=== PATIENT | male | born 1950 | race Caucasian/White ===

== ENCOUNTER → 2017-08-22 | Outpatient (CLI) | payer OTHER ==
[~2017-08-22] MED LIST: ACETAZOLAMIDE125 MG; ALBUTEROL INH IH; ALBUTEROL2.5 MG/0.1 INH; LISINOPRIL10 MG PO; LORTAB 7.5/5001 TA3 PO; METROPOLOL OR; PERCOCET 7.5-51 EACH PO; PROAIR HFA8.5 GM INH; ROBAXIN 750 MG750 M1 PO; ZOCOR 20 MG TAB20 M1 OR
== END ==
LOC: RAD 10:37
DX: M85.89 Other specified disorders of bone density and structure, multiple sites (principal); Z85.46 Personal history of malignant neoplasm of prostate

== ENCOUNTER → 2019-03-27 | Outpatient (CLI) | payer OTHER | END | disposition home or self-care (01) | LOC: SJCVCIMAG 07:30 | DX: I65.23 Occlusion and stenosis of bilateral carotid arteries (principal); I10 Essential (primary) hypertension; E78.5 Hyperlipidemia, unspecified; C61 Malignant neoplasm of prostate; Z82.49 Family history of ischemic heart disease and other diseases of the circulatory system; Z79.82 Long term (current) use of aspirin ==

== ENCOUNTER → 2019-11-24 | Outpatient (CLI) | payer OTHER ==
[~2019-11-24] VITALS: Ht 177.8 cm; Wt 68.0 kg
[~2019-11-24] MED LIST changes: +DICLOFENAC SOD50 MG PO; +EYE DROPS15 M1 OPHTHALMIC; +IRON325 M1 PO; -LISINOPRIL10 MG PO; +PRESERVISION A1 EAC2 PO; +ROSUVASTATIN CA40 MG PO; +ZESTRIL20 MG PO; -ZOCOR 20 MG TAB20 M1 OR
--- NOTE | ~2019-11-24 | HPC ---
[facility] [address] [place] [address] PAIN MANAGEMENT CONSULTATION Name: EDGAR VILLAREAL [facility] #[facility] [id number] Admission: 11/24/19 Attend Phys: Noble Trejo DO Discharge: Date of : 50 Report #: [id number] CC: Marilyn Rogers ANP Noble Cantu DATE OF SERVICE: 11/24/2019 CHIEF COMPLAINT: Neck pain. HISTORY OF PRESENT ILLNESS: As you know, the patient is a pleasant 69-year-old male with longstanding history of chronic upper neck pain. The patient states the pain began to intensify on 03/2015. As you are aware, the patient has had 2 different surgeries in the cervical spine, one in 2000 where he underwent a cervical diskectomy and in 2007 he underwent an anterior fusion. He states that he has trialled conservative treatment with physical therapy, but this did not provide much in the way of improvement. He sought evaluation through [facility]surgery of [facility] to discuss treatment options for his upper neck symptoms. It was determined the patient was likely suffering from facet arthropathy pain and referred for discussion of treatment options for cervical facet degeneration. The patient was advised when he made today's appointment that we do not offer a medial branch nerve blocks or radiofrequency lesioning of the cervical region. He chose to go ahead and continue to follow up in this appointment. The patient indicates the pain today is constant. He describes the pain as aching, place his current pain score 2/10, daily average of 6/10, worst pain has been is 8/10. The patient states his pain is exacerbated with cervical extension and rotation, improves with forward flexion of the cervical region. He has been referred to our service to discuss treatment options for chronic upper neck pain due to facet arthropathy above the level of his fusion at C4-C5 and C5-C6. PAST MEDICAL HISTORY: 1. Asthma. 2. Hypertension. 3. Dyslipidemia. 4. Iron deficiency anemia. 5. Prostate cancer. PAST SURGICAL HISTORY: 1. Radical prostatectomy. 2. L4-L5 DLL [address] Hitchcock. 3. DLL L4-L5 [address] Hitchcock. 4. ACDF of the cervical spine at C4-C5 and C5-C6 in 2007. 5. Cervical diskectomy 2000. SOCIAL HISTORY: The patient states he is a nonsmoker. Denies IV or illicit drug use. Admits to 2 alcohol beverages per day. 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 He is unaccompanied at today's visit. REVIEW OF SYSTEMS: Positive for wearing corrective eyewear, hearing loss, asthma, nocturia, sexual difficulty, neck pain. All other review of systems negative per 12-point review of systems other than those listed in history of present illness. Pain impact score 36/70 indicating moderate interference of daily activities secondary to pain. ALLERGIES: PENICILLINS. CURRENT MEDICATIONS: Rosuvastatin 40 mg once a day, lisinopril 20 mg per day, albuterol 2 puffs q.4 hours p.r.n., ferrous sulfate 325 mg per day. IMAGING: No imaging available. PQRS: The patient has known arthritic changes of the cervical spine, lumbar spine, bilateral hips. No rheumatoid arthritis. He is placing current pain score at around 6/10. He is not a fall risk, has not had a fall in last 3 months. He is not on blood thinners, but is treated for hypertension. He is not on chronic opioids, has a low opioid addiction potential based on our assessment tool. Pain impact is 36/70, moderate interference of daily activities secondary to pain. PHYSICAL EXAMINATION: VITAL SIGNS: Blood pressure 142/89, pulse 75, respiratory rate 18 and unlabored. The patient is 98% on room air. Height 5 feet 10 inches tall, weight 150 pounds, BMI calculated 21.5. GENERAL: Well-developed, well-nourished, well-hydrated 69-year-old male appearing his stated age, placing current pain score up to 6/10. HEENT: Normocephalic, atraumatic. Pupils equal, round and reactive to light. Extraocular muscles are intact. NEUROLOGIC: Speech is fluent. The patient is deemed an excellent historian. LUNGS: Clear, no wheeze, rhonchi or rales. CARDIOVASCULAR: Regular. No appreciable gallop, no rub. ABDOMEN: Soft, nontender, nondistended, normal active bowel sounds. EXTREMITIES: Show no clubbing, no cyanosis, no noted edema. MUSCULOSKELETAL: Palpatory tenderness is noted over the paraspinal musculature of cervical spine. No spinous process tenderness. Upper extremity strength is equal and symmetrical 5/5. Muscle bulk and tone equal and symmetrical when comparing left upper extremity to right upper extremity. Deep tendon reflexes 2+/4 biceps, brachioradialis and triceps. Spurling's test is negative. Cervical provocation testing including extension and rotation exacerbate upper neck pain. Forward flexion is mildly restricted, but improvement in symptoms. ASSESSMENT: 1. Chronic neck pain. 2. Cervical spondylosis without radiculopathy. 3. Facet arthropathy of the cervical spine. 4. Chronic intractable pain. PLAN: 1. Based on today's physical exam and history the patient has provided, the description the patient uses in regards to pain, it would appear the symptoms he is relying and perceiving are due to the facet arthropathy of the cervical region. The patient and I discussed the treatment options we have available here at this clinic to address his cervical facet arthropathy, the following was discussed with the patient today. We discussed physical therapy, stretching exercises and traction techniques as a treatment option. This will help alleviate some of the pressure in the upper cervical spine and potentially improve overall pain. We discussed medication management utilizing nonsteroidal anti-inflammatory therapy along with a possible addition of a low dose opioid such as tramadol or hydrocodone if necessary. We discussed intra-articular facet injections as a treatment option, but did advise the patient those would be transient in their improvement and symptoms would likely return. We discussed medial branch nerve blocks and radiofrequency lesioning though we do not offer those type of procedures at this clinic. After reviewing the risks and benefits of all the proposed treatment options, the patient chose to consider his options further before moving forward with interventional treatments. 2. We made no changes in the patient's medication management at this time. The patient and I had a very long and fruitful discussion about the treatment options and the use of medications and he is resistant to make any adjustments at this time, though ultimately he may require to at least undergo treatment with nonsteroidal anti-inflammatories. 3. We have plans to see the patient back in followup visit on an as needed basis. He is going to discuss his case further with Neurosurgery and his primary care physician to determine whether or not he wishes to undergo radiofrequency lesioning of the medial branch nerves of the cervical spine. We did discuss the fact that this is a temporizing treatment option and would have to be repeated potentially as much as every 6 months to 9 months depending on efficacy. The patient at this time is considering a more prolonged treatment approach, but will discuss further with his treating team. We would be more than willing to see the patient back in followup visit for intra-articular facet injections and to address other therapeutic options if he wishes to do so. 4. We wish to thank nurse practitioner, Lakeisha Rogers for the opportunity to see the patient in consultation. We will keep you apprised whether or not he does return to discuss other treatment options with our clinic. Again, we wish to thank you for the opportunity to see the patient in consultation. By: [phone] Noble Trejo DO /stephanie
[2019-11-24 08:31] VITALS: BP 142/89
--- NOTE | 2019-11-24 08:51 | NUR ---
Pain Clinic Assessment: 1. History of Osteoarthritis: DENIES History of Rheumatoid Arthritis: DENIES 2. Height: 5 ft. 10 in. 177.8 cm. Weight: 150.0 lb. oz. 68.040 kg. Patient's BMI: 21.5 3. Vital Signs: BP: 142/89 Pulse: 75 Resp: 18 Temp: 02 Sat: 98 ECG Mon: 4. Pain Intensity: 6 5. Fall Risk: Dizziness: N Needs help standing or walking: N Fallen in the last 3 months: N Fall risk comments: 6. Patient on Blood Thinner: None 7. History of Hypertension: Y 8. Opioid Therapy greater than 6 weeks: N Opiate Contract Signed: 9. Risk Assessment Tool Provided: 10. Functional Assessment Tool: 11. Recreational Drug Use: Never Drug Type: Tobacco Use: Never Smoker Tobacco Type: Amount or Packs/day: How Many Years: Alcohol Use: Yes Frequency: Daily Quant: 2 WINE
== END ==
LOC: PAIN 06:41
PROVIDERS: ATTEND Anesthesiology Pain Medicine
DX: M47.22 Other spondylosis with radiculopathy, cervical region (principal); G89.29 Other chronic pain; Z88.0 Allergy status to penicillin; Z79.899 Other long term (current) drug therapy

== ENCOUNTER → 2019-12-22 | Outpatient (CLI) | payer OTHER ==
[~2019-12-22] VITALS: Ht 177.8 cm; Wt 70.3 kg
[~2019-12-22] MED LIST changes: +TRAMADOL 50 MG50 MG PO
[2019-12-22 08:04] VITALS: BP 124/72
--- NOTE | 2019-12-22 08:22 | NUR ---
Pain Clinic Assessment: 1. History of Osteoarthritis: DENIES History of Rheumatoid Arthritis: DENIES 2. Height: 5 ft. 10 in. 177.8 cm. Weight: 155.0 lb. oz. 70.308 kg. Patient's BMI: 22.2 3. Vital Signs: BP: 124/72 Pulse: 65 Resp: 16 Temp: 02 Sat: 99 ECG Mon: 4. Pain Intensity: 2 5. Fall Risk: Dizziness: Needs help standing or walking: Fallen in the last 3 months: Fall risk comments: 6. Patient on Blood Thinner: None 7. History of Hypertension: Y 8. Opioid Therapy greater than 6 weeks: N Opiate Contract Signed: 9. Risk Assessment Tool Provided: 0-LOW 10. Functional Assessment Tool: 11. Recreational Drug Use: Never Drug Type: Tobacco Use: Never Smoker Tobacco Type: Amount or Packs/day: How Many Years: Alcohol Use: Yes Frequency: Daily Quant: 2 GLASSES WINE
--- NOTE | 2019-12-22 10:45 | HPC ---
[facility] [place] [address] PAIN MANAGEMENT CONSULTATION Name: EDGAR VILLAREAL Room #: [facility] [id number] Admission: 12/22/19 Attend Phys: Noble Trejo DO Discharge: Date of : 50 Report #: [id number] CC: Marilyn Cantu MD DATE OF SERVICE: 12/22/2019 REFERRING PHYSICIAN: Marilyn Rogers APRN CHIEF COMPLAINT: Neck pain. HISTORY OF PRESENT ILLNESS: As you know, the patient is a very pleasant 69-year-old male with longstanding history of chronic upper neck pain. He states pain began 03/2015. He is unaware of any injury or trauma that may have led to symptom development. He has undergone surgery of the cervical spine in 2000 and 2007 with improvement in symptoms. Unfortunately, his symptoms returned. He was diagnosed with progressively worsening cervical spondylosis without radiculopathy and referred to our clinic to discuss options for treatment. We saw the patient in consultation per the request of nurse practitioner, Lakeisha Rogers on 11/24/2019 and he was started on diclofenac sodium for pain control. He is taking 2 tabs a day with resolution of symptoms down to a level of 2/10. He is extremely pleased with response to medication. He has exacerbation of symptoms now that only reach about 4-5 level instead of an 8-9 level. He is very pleased with response to medication, returning today in followup visit to discuss options for treatment to address this residual intermittent pain. The patient is very pleased with response to treatment. He has discussed with his brother who is a retired orthopedic surgeon whether or not radiofrequency lesioning would be of interest and he has been advised that this would not be a treatment that they would recommend and he has chosen to utilize medication management. He returns today to discuss adjustments in medications to address residual pain. ALLERGIES: PENICILLIN. CURRENT MEDICATIONS: Rosuvastatin 40 mg once a day, lisinopril 20 mg once a day, albuterol 2 puffs q. 4 hours p.r.n., ferrous sulfate 325 mg per day, diclofenac 50 mg b.i.d. SOCIAL HISTORY: The patient is a nonsmoker. Denies IV or illicit drug use. Admits to approximately 2 alcohol beverages per day. 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 Unaccompanied today. IMAGING: No new imaging available. PQRS: The patient has arthritic changes of the cervical spine, lumbar spine, and bilateral hips. No rheumatoid arthritis. The patient is placing current pain score at 2/10. He is not a fall risk, has not had a fall in last 3 months. He is not on blood thinners, but he is treated for hypertension. He is not on chronic opioids, has a low opiate addiction potential. Pain impact of , mild interference of daily activities secondary to pain. PHYSICAL EXAMINATION: VITAL SIGNS: Blood pressure 124/72, pulse 65, respiratory rate 16 and unlabored. The patient is 99% on room air. Height 5 feet 10 inches tall, weight 155 pounds, BMI calculated 22.2. GENERAL: Well-developed, well-nourished, well-hydrated 69-year-old male appearing stated age, pain is rated today 2/10. HEENT: Normocephalic, atraumatic. Pupils equal, round and reactive. Speech remains fluent. EXTREMITIES: Show no clubbing, no cyanosis. No appreciable edema. MUSCULOSKELETAL: There is tenderness to palpation over the paraspinal musculature of cervical spine, but this is significantly improved from our last visit. No spinous process tenderness. Upper extremity strength equal and symmetrical. Muscle bulk and tone equal and symmetrical in upper extremities. Spurling's test is negative. Cervical provocation testing is met with increasing pain with rotation and lateral flexion. Pain is also noted for a cervical extension. Forward flexion of the cervical spine improves pain. ASSESSMENT: 1. Chronic neck pain. 2. Cervical spondylosis without radiculopathy. 3. Facet arthropathy of cervical spine. 4. Chronic intractable pain. PLAN: 1. The patient returns today in followup visit indicating good efficacy with the diclofenac provided at our last visit. He is taking it b.i.d. dosing, which has reduced his pain from its high of 7/10-8/10 down to a 2/10. He does have exacerbation of symptoms with activity such as looking up for any length of time or mowing the lawn. He returns today for further adjustments in medication management to address this residual spike of symptoms on an infrequent basis. He is denying side effects of dyspepsia, worsening of blood pressure or lower extremity edema with use of the diclofenac. 2. We recommend continuing diclofenac for baseline pain control. The fact that he is seeing such a significant improvement in symptoms is encouraging. We recommend he continue the diclofenac at b.i.d. dosing. He could escalate to t.i.d. if his symptoms do worsen over an extended period of time, but at present, he seems to be doing very well. We will recommend he continues this medication. He has refills and does not need a renewal of his medication today. 3. In regard to the patient's breakthrough pain, I would recommend the use of a p.r.n. tramadol. This will provide the patient with improvement in his analgesic benefit with minimal side effects. We have given the patient tramadol 1-2 tabs p.o. b.i.d. p.r.n. pain. I have given the patient #60 tablets with refills as necessary. The patient reports that he would have to use this likely once or twice a week at present, but we are concerned that with increasing activities over the next couple of weeks with the holidays that he may have exacerbation of symptoms and thus provided a b.i.d. dosing. He was given the medication in prescription form today. He will fill this medication at his earliest convenience. He will watch for side effects of sleepiness, disorientation, confusion, mental slowing and constipation. We recommend this to be used as p.r.n. 4. We plan to see the patient back in follow-up visit in approximately 2 months. At that time, review the efficacy of medications provided today and discuss interventional treatment options if necessary. We are pleased to see he is doing well. We will see him back in 2 months. <ELECTRONICALLY SIGNED> By: Noble Trejo DO 12/22/19 1045 [id number] Noble Trejo DO /nt
== END ==
LOC: PAIN 06:49
PROVIDERS: ATTEND Anesthesiology Pain Medicine
DX: M47.22 Other spondylosis with radiculopathy, cervical region (principal); G89.4 Chronic pain syndrome; Z79.891 Long term (current) use of opiate analgesic; Z79.899 Other long term (current) drug therapy; Z88.0 Allergy status to penicillin

== ENCOUNTER → 2020-02-16 | Outpatient (CLI) | payer OTHER ==
[~2020-02-16] VITALS: Ht 177.8 cm; Wt 73.4 kg
[2020-02-16 10:05] VITALS: BP 123/79
--- NOTE | 2020-02-16 10:22 | NUR ---
Pain Clinic Assessment: 1. History of Osteoarthritis: DENIES History of Rheumatoid Arthritis: DENIES 2. Height: 5 ft. 10 in. 177.8 cm. Weight: 161.8 lb. oz. 73.392 kg. Patient's BMI: 23.2 3. Vital Signs: BP: 123/79 Pulse: 73 Resp: 14 Temp: 02 Sat: 99 ECG Mon: 4. Pain Intensity: 2 5. Fall Risk: Dizziness: N Needs help standing or walking: N Fallen in the last 3 months: N Fall risk comments: 6. Patient on Blood Thinner: None 7. History of Hypertension: Y 8. Opioid Therapy greater than 6 weeks: N Opiate Contract Signed: 9. Risk Assessment Tool Provided: 0-LOW 10. Functional Assessment Tool: 11. Recreational Drug Use: Never Drug Type: Tobacco Use: Never Smoker Tobacco Type: Amount or Packs/day: How Many Years: Alcohol Use: Yes Frequency: Quant:
--- NOTE | 2020-02-17 11:33 | HPC ---
[facility] [place] [address] PAIN MANAGEMENT CONSULTATION Name: EDGAR VILLAREAL [facility] #: [facility] [id number] Admission: 02/16/20 Attend Phys: Noble Trejo DO Discharge: Date of : 50 Report #: [id number] THIS REPORT FOR: cc: Missael Cantu MD, Neal A. MD Johnson, James E. DO ~ DATE OF SERVICE: 02/16/2020 CHIEF COMPLAINT: Neck pain, intermittent low back pain. HISTORY OF PRESENT ILLNESS: As you know, the patient is a very pleasant 69-year-old male with longstanding history of neck pain secondary to osteoarthritic changes. He is also complaining of intermittent low back pain secondary to osteoarthritis. We saw the patient in consultation on 11/24/2019 where he was diagnosed with chronic neck pain secondary to facet arthropathy. He was started on medication per his request. We made adjustments in that medication at the followup visit on 12/22/2019. At that time, we gave the patient tramadol for intense pain and started him on diclofenac 50 mg dose twice a day to 3 times a day for baseline pain control. The patient is reporting excellent benefit with the medication, now placing pain score 2/10. He is denying any side effects to the therapy and is very pleased with response. The patient indicates that he has relied on the tramadol 2 different times since November and noted near complete resolution of symptoms with its use. He has only used 2 tablets since our visit of 12/22/2019 and has multiple tablets available. He returns today in followup visit to discuss efficacy of medications and determine if any other changes need to be made in medication management. He has suffered no new injury or trauma. He has had no changes in his medical management since our last visit. ALLERGIES: PENICILLIN. CURRENT MEDICATIONS: Rosuvastatin 40 mg per day, lisinopril 20 mg per day, albuterol 2 puffs q.4 hours p.r.n., ferrous sulfate 325 mg per day, multivitamin 1 tab per day, diclofenac 50 mg 2-3 times a day, tramadol 50 mg p.o. q. 6 hours p.r.n. pain. SOCIAL HISTORY: The patient is a nonsmoker. Denies IV or illicit drug use. Admits to approximately 2 alcohol beverages per day. 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 IMAGING: No new imaging available. PQRS: The patient has known arthritic changes of the cervical spine, lumbar spine, bilateral hips. No rheumatoid arthritis. He is placing current pain score 2/10. He is not a fall risk, has not had a fall in last 3 months. He is not on blood thinners, but is treated for hypertension. He is on no chronic [address] [address] PAIN MANAGEMENT CONSULTATION Name: EDGAR VILLAREAL Room #: REG [facility]#: [id number] Admission: 02/16/20 Attend Phys: Noble Trejo DO Discharge: Date of : 50 Report #: [id number] opioids, has a low opiate addiction potential. Pain impact today 01/11, mild interference in daily activity. PHYSICAL EXAMINATION: VITAL SIGNS: Blood pressure 123/79, pulse 73, respiratory rate 14 and unlabored. The patient is 99% on room air. Height 5 feet 10 inches tall, weight 161.8 pounds, BMI calculated at 23.2. GENERAL: Well-developed, well-nourished, well-hydrated 69-year-old male appearing his stated age. He is in no acute distress, awake, alert and oriented x 3. Current pain score is rated at 2/10. HEENT: Normocephalic, atraumatic. Pupils are round. NEUROLOGIC: Speech is fluent. The patient is wearing a mask in compliance with COVID-19 regulations. EXTREMITIES: Show no clubbing, no cyanosis. No appreciable edema. MUSCULOSKELETAL: Upper extremity strength remains equal and symmetrical. Muscle bulk and tone equal and symmetrical in upper extremities. The patient does have limitation of motion with the left shoulder due to a previous clavicular fracture with nonunion healing. Spurling's test is negative. Cervical provocation testing is met with increasing pain, specifically with rotation, lateral flexion and mildly with extension. ASSESSMENT: 1. Cervicalgia. 2. Cervical spondylosis without radiculopathy. 3. Facet arthropathy of the cervical spine. 4. Chronic intractable pain. PLAN: 1. The patient returns today in followup visit indicating excellent benefit with the combination of diclofenac twice to 3 times a day with meals and tramadol on a p.r.n. basis. The patient is extremely pleased with response to treatment. He notes near complete resolution of symptoms when he takes the tramadol. Typically, his pain is around 2/10 with the diclofenac. He states that this level of pain is tolerable for him. He is very pleased with response to treatment. He continues to be evaluated through Urology in regards to an elevated PSA level. He has had no significant changes in his pain generators concerning for possible metastasis. They have plans to have the patient undergo PET scan in the next couple of months. We will await those findings. As per treatment for the chronic cervicalgia, we recommend continuing medications. Interventional treatments are not necessary at this time. The patient is agreeable. 2. The patient will continue on diclofenac 50 mg dose 1 tab p.o. b.i.d. with meals or t.i.d. with meals if necessary. I have given the patient #90 tablets and 6 refills. All prescription information was sent to his local pharmacy. He is to watch for any dyspepsia, worsening of blood pressure, lower extremity edema. If he notes any side effects, discontinue immediately, call for further [facility] [address] [place] [address] PAIN MANAGEMENT CONSULTATION Name: EDGAR VILLAREAL Room #: [facility]#: [id number] Admission: 02/16/20 Attend Phys: Noble Trejo DO Discharge: Date of : 50 Report #: [id number] instructions. 3. The patient has tramadol available. I gave him tablets at our visit of 12/22/2019. He has taken 2 tablets since that time, he has needed only sparingly. We recommend if he needs the medications, continue to use it on an as needed basis. Refills can be provided either through his primary care team or through our services if needed. We are pleased to see he has done well without therapy. The fact that he has only used 2 tablets in the last 2 months. He is very encouraging. We discussed that with him today. 4. We plan to see the patient back in followup visit on an as needed basis. We would certainly be available if symptoms do progress or intensify for interventional treatments. We are pleased to see he has done well with medication management and we will see him back as needed. <ELECTRONICALLY SIGNED> By: Noble Trejo DO 02/17/20 1133 [id number] Noble Trejo DO /nt
== END ==
LOC: PAIN 06:55
PROVIDERS: ATTEND Anesthesiology Pain Medicine
DX: M47.812 Spondylosis without myelopathy or radiculopathy, cervical region (principal); G89.29 Other chronic pain; Z79.891 Long term (current) use of opiate analgesic; Z79.899 Other long term (current) drug therapy

== ENCOUNTER → 2020-03-21 | Outpatient (CLI) | payer OTHER | LOC: SJCVCIMAG 07:37 | PROVIDERS: ATTEND Internal Medicine | DX: I65.23 Occlusion and stenosis of bilateral carotid arteries (principal); R94.31 Abnormal electrocardiogram [ECG] [EKG]; I10 Essential (primary) hypertension; E78.5 Hyperlipidemia, unspecified; C61 Malignant neoplasm of prostate; I25.10 Atherosclerotic heart disease of native coronary artery without angina pectoris; Z79.899 Other long term (current) drug therapy; Z98.890 Other specified postprocedural states; Z82.49 Family history of ischemic heart disease and other diseases of the circulatory system ==

== ENCOUNTER → 2020-04-26 | Outpatient (CLI) | payer OTHER ==
[~2020-04-26] VITALS: Ht 175.3 cm; Wt 72.7 kg
[~2020-04-26] MED LIST changes: +NABUMETONE 500500 M2 PO
[2020-04-26 08:30] VITALS: BP 134/76
--- NOTE | 2020-04-26 08:41 | NUR ---
Pain Clinic Assessment: 1. History of Osteoarthritis: NECK AND BACK HX 2 BACK AND 2 NECK SURGERIES History of Rheumatoid Arthritis: DENIES 2. Height: 5 ft. 9 in. 175.3 cm. Weight: 160.2 lb. oz. 72.666 kg. Patient's BMI: 23.6 3. Vital Signs: BP: 134/76 Pulse: 74 Resp: 16 Temp: 02 Sat: 98 ECG Mon: 4. Pain Intensity: 2 TO 9 5. Fall Risk: Dizziness: N Needs help standing or walking: N Fallen in the last 3 months: N Fall risk comments: 6. Patient on Blood Thinner: None 7. History of Hypertension: Y 8. Opioid Therapy greater than 6 weeks: N Opiate Contract Signed: 9. Risk Assessment Tool Provided: 0-LOW 10. Functional Assessment Tool: 11. Recreational Drug Use: Never Drug Type: Tobacco Use: Never Smoker Tobacco Type: Amount or Packs/day: How Many Years: Alcohol Use: Yes Frequency: Daily Quant: 2 GLASSES WINE
--- NOTE | 2020-04-27 14:53 | HPC ---
[facility] [place] [address] PAIN MANAGEMENT CONSULTATION Name: EDGAR VILLAREAL Room #: REG [facility] Radha#: [id number] Admission: 04/26/20 Attend Phys: Noble Trejo DO Discharge: Date of : 50 Report #: [id number] THIS REPORT FOR: cc: Missael Cantu MD, Neal A. MD Johnson, James E. DO ~ DATE OF SERVICE: 04/26/2020 CHIEF COMPLAINT: Neck pain. HISTORY OF PRESENT ILLNESS: As you know, the patient is a very pleasant 69-year-old male who has had a longstanding history of neck pain secondary to osteoarthritic changes. He has also been complaining of intermittent low back pain, but at this point, his symptoms are more related to the cervical area. When we saw the patient in consultation, he was diagnosed with chronic neck pain secondary to facet arthropathy and given medications per his request. He has been taking diclofenac 3 times a day at 50 mg dose with improvement in analgesia. He was given tramadol for basic pain control for which he has taken 1 tab every week give or take. He continues to experience neck pain that debilitates him from doing his daily activities. Returning today to discuss options for treatment. The patient and I did discuss intra-articular facet injections as a treatment option, though this would be fairly limited in their efficacy. We did discuss radiofrequency lesioning of the medial branch nerves at the last visit, but advised the patient we no longer offer this as a treatment course as we have found minimal benefit. He returns to discuss treatment options today. He has discussed his case with his brother who is a retired orthopedic surgeon and he is not at all interested in radiofrequency lesioning of the medial branch nerves. He wishes to discuss other treatment options. ALLERGIES: PENICILLIN. CURRENT MEDICATIONS: Tramadol 50 mg 3 times a day p.r.n., diclofenac 50 mg t.i.d. with food, PreserVision AREDS 2 soft gel caplets per day, ferrous sulfate 325 mg per day, albuterol 2 puffs q. 4 hours p.r.n., lisinopril 20 mg per day, rosuvastatin 40 mg per day. SOCIAL HISTORY: The patient reports himself a nonsmoker. Denies IV or illicit drug use. Admits to 2 glasses of wine per day. 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 IMAGING: No new imaging available. PQRS: The patient has known arthritic changes of the cervical spine, lumbar spine, bilateral hips. No rheumatoid arthritis. He is placing current pain score anywhere from 2-9/10 depending on activities, not a fall risk, has not had [address] [address] PAIN MANAGEMENT CONSULTATION Name: DIONNAEDGAR [facility] [id number] Admission: 04/26/20 Attend Phys: Noble Trejo DO Discharge: Date of : 50 Report #: [id number] a fall in last 3 months. He is not on blood thinners, but is treated for hypertension. He is not on chronic opioids, has a low opioid addiction potential. Pain impact rated at 11 of 70 today, mild interference of daily activities secondary to pain. PHYSICAL EXAMINATION: VITAL SIGNS: Blood pressure 134/76, pulse 74, respiratory rate 16 and unlabored. The patient 98% on room air. Height 5 feet 9 inches tall, weight 160.2 pounds, BMI calculated 23.6. GENERAL: Well-developed, well-nourished, well-hydrated 69-year-old male appearing stated age, placing current pain score 2-9/10. HEENT: Normocephalic, atraumatic. Pupils equal, round and reactive. Speech fluent. EXTREMITIES: Show no clubbing, no cyanosis. No appreciable edema. MUSCULOSKELETAL: There is a significant crepitus noted with rotation, lateral flexion of the cervical spine. This is located in the lower portion of the cervical area. There is moderate restriction of motion with pain generation in all planes of cervical rotation, lateral flexion and extension. Upper extremity strength remains symmetrical 5/5. Muscle bulk and tone equal and symmetrical. Spurlings test is negative. ASSESSMENT: 1. Cervical spondylosis without radiculopathy. 2. Facet arthropathy of cervical spine. 3. Cervicalgia. 4. Chronic intractable pain. PLAN: 1. The patient returns today in followup visit, describing an improvement in symptoms with the diclofenac therapy. He reports improvement of about 25%. Unfortunately, he is unable to go about most of his daily activities due to his ongoing pain issue. He states that recently he has been almost disabled by the pain while doing simple things like using a snowblower recently or doing any kind of yard work. We discussed the possibility of rotating medications, which he is interested in today, but does wish to return to see his neurosurgeon to discuss surgical options. We had discussed in the past that radiofrequency lesioning could be provided, though we have not been providing that as an option of treatment to any patients as we have found it to be minimally effective and has a high complication rate and so we have discontinued this procedure. The patient indicates that he would not have wanted to undergo the procedure as he has talked to his [id number] who also advised against it. 2. The patient is following up with Neurosurgery in the next couple of weeks. He wishes to discuss options for surgical treatment. I do believe that given the extent of his cervical facet arthropathy the only treatment option that the surgery could offer would be fusion of the cervical areas that are generating his symptoms. He is going to consider this as an option. [facility] [address] [place] [address] PAIN MANAGEMENT CONSULTATION Name: DIONNAEDGAR Juan Room #: REG [facility] Garcia#: [id number] Admission: 04/26/20 Attend Phys: Noble Treoj DO Discharge: Date of : 50 Report #: [id number] 3. We will rotate the patient from diclofenac to nabumetone in hopes of better analgesic benefit. I provided the patient 500 mg tablet 3 times a day. This will take the place of his diclofenac. He will watch for side effects of dyspepsia, worsening of blood pressure, lower extremity edema with use of the medication. If he notes any side effects, discontinue immediately and return to the diclofenac therapy. 4. I recommend the patient utilize the tramadol more consistently. He has been very inconsistent with the use of medication using only 1 tablet once a week or possibly even less. I believe this could provide some analgesic benefit. He states that when he takes 1 tablet he does not notice much in the way of benefit. We will double the dose and try it 3 times a day for a total of 300 mg per day maximum and he is agreeable to make this adjustment today in hopes of improving pain as he awaits evaluation with Dr. Hitchcock. He was given a prescription of tramadol 50 mg 2 tabs up to twice a day. I have given him 120 tablets and no refills. 5. The patient has requested that we contact Dr. Hitchcock's office in regards to treatment course. Given his response to medications, I think this would be a way to at least control symptoms to some degree, though I do not feel that we are going to be able to control all of the pain he is experiencing. He would have to adjust his lifestyle accordingly. We discussed the facet injections and that these will be only temporary in their relief and we do not recommend that he start this process unless he is looking towards radiofrequency lesioning, which we do not offer but he can follow up with other physicians. He has been advised by his brother not to even look towards this option. The final option he has is surgical and we will contact Dr. Hitchcock's office to determine if he would be willing to see the patient back in followup visit or whether they are recommending more conservative treatment as we have alluded to above. 6. We will see the patient back in followup visit on an as needed basis. We have plans to contact the patient once we have heard from Dr. Hitchcock's office in regards to his surgical options. <ELECTRONICALLY SIGNED> By: Noble Trejo DO 04/27/20 [id number] Noble Trejo DO /nt
== END ==
LOC: PAIN 06:50
PROVIDERS: ATTEND Anesthesiology Pain Medicine
DX: M50.30 Other cervical disc degeneration, unspecified cervical region (principal); G89.29 Other chronic pain; Z88.8 Allergy status to other drugs, medicaments and biological substances; Z79.899 Other long term (current) drug therapy

== ENCOUNTER → 2020-09-19 | Outpatient (CLI) | payer OTHER | LOC: NUC 10:01 | PROVIDERS: ATTEND Family Medicine | DX: M85.88 Other specified disorders of bone density and structure, other site (principal) ==

== ENCOUNTER → 2021-03-03 | Outpatient (CLI) | payer OTHER | LOC: SJCVCIMAG 06:52 | PROVIDERS: ATTEND Internal Medicine | DX: I65.23 Occlusion and stenosis of bilateral carotid arteries (principal); R06.00 Dyspnea, unspecified; I10 Essential (primary) hypertension; E78.5 Hyperlipidemia, unspecified; I25.10 Atherosclerotic heart disease of native coronary artery without angina pectoris; C61 Malignant neoplasm of prostate; Z86.2 Personal history of diseases of the blood and blood-forming organs and certain disorders involving the immune mechanism; Z72.89 Other problems related to lifestyle; Z79.899 Other long term (current) drug therapy; Z88.0 Allergy status to penicillin; Z82.49 Family history of ischemic heart disease and other diseases of the circulatory system ==

== ENCOUNTER → 2021-03-21 | Outpatient (CLI) | payer OTHER | LOC: SJCVCIMAG 06:52 | PROVIDERS: ATTEND Internal Medicine | DX: I07.1 Rheumatic tricuspid insufficiency (principal); I10 Essential (primary) hypertension; E78.5 Hyperlipidemia, unspecified ==